=== PATIENT | female | born 1960 | race Caucasian/White ===

== ENCOUNTER 2019-11-03 04:22 | Emergency (ER) | payer BC ==
[~2019-11-03] VITALS: Ht 167.6 cm; Wt 65.9 kg
[~2019-11-03 04:22] MED LIST: ACETAMINOPHEN W1 TA6 PO; AMOXICILLIN/CLA1 TA1; DOXYCYCLINE 10100 MG PO
[2019-11-03 05:10] LABS: BASO % 0.3 % (0.0-2.0); GRAN # 6.1 (1.4-6.5); LYMPH # 0.2 (1.2-3.4); LYMPH % 3.4 % (20.0-51.0); MEAN CELL VOLUME 89 fl (80.0-100.0); MEAN CORPUSCULAR HEMOGLOBIN 30 pg (27.0-31.0); MEAN CORPUSCULAR HGB CONC 33 g/dl (33.0-37.0); MEAN PLATELET VOLUME 8.9 fl (7.4-10.4); MONO # 0.6 (0.1-0.6); PLATELET COUNT 289 K/mm3 (130-400); RED BLOOD COUNT 4.04 M/mm3 (4.10-5.30); REDCELL DISTRIBUTION WIDTH-CV 12.9 % (11.5-14.5)
[2019-11-03 05:13] LABS: HEMATOCRIT 36.1 % (37.0-47.0)
[2019-11-03 05:23] LABS: ALBUMIN 4.4 gm/dL (3.5-5.0); BILIRUBIN,TOTAL 0.4 mg/dL (0.0-1.0); CALCIUM 9.1 mg/dL (8.4-10.2); CREATININE, serum 0.91 (0.52-1.25); POTASSIUM 3.6 mmol/L (3.4-5.0); TOTAL PROTEIN 7.6 gm/dL (6.4-8.2)
[2019-11-03 05:46] VITALS: TEMP 99.5
[2019-11-03 06:22] VITALS: BP 95/54; PULSE 77
== END 2019-11-03 06:22 | disposition home or self-care (01) ==
LOC: COL.ER 04:22
PROVIDERS: Emergency Medicine
DX: B34.9 Viral infection, unspecified (principal)
CPT/HCPCS: J1885; J2405; J3010; J7030